=== PATIENT | male | born 1935 | race Caucasian/White ===

== ENCOUNTER 2018-11-05 07:56 | Inpatient (IN) ==
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
[2018-11-05] MEDS ORDERED: Bupivacaine 0.5% Inj 50 ML MDV Vial ONE (08:41)
[2018-11-05] MEDS ORDERED: Sodium Chlor 0.9% Inj 500 ML IV.CONT ONE (08:45)
[2018-11-05] MEDS ORDERED: Metoprolol Tartrate 25 MG Tablet PO ONE (08:45)
[2018-11-05] MEDS ORDERED: Chlorhexidine Gluconate 2% 1 Pack (2 Cloths) TOPICAL ONE (08:45)
[2018-11-05] MEDS ORDERED: ceFAZolin 2 GM Premix Inj 2 GM/50 ML PIGGYBACK IV.SIG SCH (09:00)
[2018-11-05] MEDS ORDERED: Famotidine PF Inj 20 MG/2 ML Vial ONE (09:15)
[2018-11-05] MEDS ORDERED: ceFAZolin Inj 500 MG Vial ONE (09:15)
[2018-11-05] MEDS ORDERED: SODIUM CHLOR 0.9% IV.SIG SCH ×2 (10:00→13:00)
[2018-11-05] MEDS ORDERED: TRANEXAMIC ACID IV.SIG SCH ×2 (10:00→13:00)
[2018-11-05] MEDS ORDERED: Zolpidem Tartrate 5 MG Tablet PO PRN ×2 (12:59→13:00)
[2018-11-05] MEDS ORDERED: Bisacodyl 10 MG Supp RECTAL PRN (13:00)
[2018-11-05] MEDS ORDERED: Morphine Inj 30 MG/30 ML PCA.VIAL PCA PRN (13:00)
[2018-11-05] MEDS ORDERED: Morphine Inj 4 MG/ML Vial IV.PUSH PRN (13:00)
[2018-11-05] MEDS ORDERED: Acetaminophen 325 MG Tablet PO PRN (13:00)
[2018-11-05] MEDS ORDERED: Aluminum/Magnesium/Simethacone Susp 30 ML UDC PO PRN (13:00)
[2018-11-05] MEDS ORDERED: Naloxone Inj 0.4 MG/ML Vial IV.PUSH PRN (13:00)
[2018-11-05] MEDS ORDERED: Post-op Orders (for Pharmacy) OTHER STA (13:00)
[2018-11-05] MEDS ORDERED: Tranexamic Acid Inj 1,000 MG in Sodium Chlor 0.9% Inj 100 ML IV.SIG ONE (13:00)
--- NOTE | 2018-11-05 13:04 | P.DCO ---
- Diagnosis (1) Full thickness rotator cuff tear Status: Acute - Occupational Therapy Order: Evaluate and treat, Improve ADL, Gross motor coordination, Fine motor coordination - Home Health Nursing Order: Wound care and dressing changes, Nursing assessment with vital signs - Home Health Aide Order: To assist in: Bathing and personal care, electrical test technician and meal prep - Language Instructor Order: To evaluate: Living conditions/environment, Support services Order: To provide: Long range planning, Community services - Case Management Consult Case Management Consult-Home Health: Yes - Certification I have seen patient Serafin Davis on 11/05/18. My clinical findings support the need for the requested home health care services because: Limited ability to care for self, High risk of falls I certify that my clinical findings support that this patient is homebound because: Post-op weakness, Unsteady gait/balance, Unsafe to leave home unassisted (1) Full thickness rotator cuff tear Qualifiers: Laterality: left Qualified Code(s): M75.122 - Complete rotator cuff tear or rupture of left shoulder, not specified as traumatic
[2018-11-05] MEDS ORDERED: fentaNYL Citrate Inj 100 MCG/2 ML Ampul ONE (13:08)
--- NOTE | 2018-11-05 13:21 | XR ---
EXAM DATE: 11/05/2018 1:17 PM EST AGE/SEX: 82 years / Male INDICATIONS: Post op left total shoulder. CLINICAL DATA: This is the patient's initial encounter. Patient reports that signs and symptoms have been present for 1 day and indicates a pain score of 0/10. MEDICAL/SURGICAL HISTORY: None. None. COMPARISON: No prior exams available for comparison. FINDINGS: Left shoulder replacement is noted. Hardware appears to be adequate in position. CONCLUSION: Status post left shoulder replacement with hardware in adequate position.. Electronically signed by: Phil Samayoa MD Board Certified Radiologist 11/05/2018 1:20 PM EST
[2018-11-05] MEDS ORDERED: Morphine Inj 30 MG/30 ML PCA.VIAL PCA ONE (13:26)
--- NOTE | 2018-11-05 13:53 | MP ---
cc: Leland Dodd MD DATE OF OPERATION: 11/05/2018 DATE OF OPERATION: 11/05/2018 PREOPERATIVE DIAGNOSIS: Full-thickness rotator cuff tear of the left shoulder. 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 PROCEDURE PERFORMED: Left reverse shoulder arthroplasty. SURGEON: Leland Dodd MD ANESTHESIA: General endotracheal. INDICATIONS: This is an 82-year-old white male with a 6-month history of pain in the left shoulder. 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 His symptoms were aggravated thereafter when he was attempting to catch a falling cookbook, experiencing a rather sharp pain for which he was taking Vicodin that he had available at home for history of longstanding low back pain. He was later evaluated by his primary care physician, at which time he did receive at least 2 cortisone injections about the shoulder area and prescribed diclofenac that he found to be of limited benefit. X-ray studies did identify degenerative changes of the left shoulder region. He remains symptomatic with pain about the shoulder area, having difficulty with any overhead posturing of his left hand above the head level. He presented to the undersigned physician in 07/2018 and at that time, described ongoing pain was interfering with his daily routine. He was advised to undergo MRI scan evaluation, the results of which identified a complete tear involving the supraspinatus and infraspinatus tendon with a large fluid-filled defect and hypertrophy, enlargement of the acromioclavicular joint, and a probable labral tear. The tear was noted to have retracted to the level of the glenohumeral joint. There was dislocation of the long head of the biceps tendon. The patient returned to the office in followup disposition, at which time the findings of the scan were reviewed and treatment options discussed. The pros and cons of continued conservative management versus operative intervention that would involve an attempted repair of his rotator cuff lesion as opposed to reverse shoulder arthroplasty, were outlined with the pluses and minuses of each of these procedures being noted. It was suggested to the patient that the more favorable long-term benefit would be associated with a reverse shoulder arthroplasty for which the patient considered his options in this regard and subsequently expressed his desire to proceed accordingly. He was thus admitted to the hospital at this time in order that the above be accomplished. DETAILS OF PROCEDURE: Following induction of satisfactory general anesthesia by endotracheal intubation as completed per the department of anesthesia, the patient was positioned upon the operating table in a modified beach chair configuration. The left shoulder and upper extremity was isolated with a U-drape, thereafter being prepped with Betadine solution and draped into a sterile field in the routine manner. Prior to initiation of the actual procedure, the standard timeout protocol was completed. All parameters were appropriately addressed and confirmed by operating room personnel. A standard anterior approach to the shoulder was initiated through a sharp skin incision being extended from the inferior margin of the clavicle, adjacent to the coracoid process and distally to the axillary crease overlying the deltopectoral interval. The incision was developed through underlying subcutaneous tissue with hemostasis maintained by electrocautery. Distally, the deltopectoral interval was developed and the cephalic vein identified. The interval was developed in a distal to proximal orientation with the vein being retracted laterally with a cuff of deltoid musculature. Retractors were placed facilitating exposure of the deeper structures. The circumflex vessels were clamped and coagulated. The biceps tendon was exposed and the distal segment of it tenodesed to the insertion of the pectoralis, which had been released in a limited fashion. A digital release of subdeltoid adhesions had been accomplished and with the shoulder maintained in a slightly externally rotated portion, the attenuated segment of the subscapularis tendon was divided along the anatomical neck of the humerus and essentially no residual rotator cuff tissue was identified superiorly. The medial portion of the tendon was tagged with #1 Ti-Cron suture and the humeral head was thereafter, delivered into the wound. Examination did reveal degenerative changes throughout the entire articular surface of the humeral head region. An entry point was facilitated superiorly adjacent to the bicipital groove, allowing entry into the humeral canal. Sequential rasping was accomplished from 7-14 mm and thereafter, the external guide was positioned in approximately 30 degrees of retroversion, facilitating amputation of the humeral head. Broaching followed from 7-13 mm with the 13 mm stem determined to be a favorable fit. With the trial stem in place, the covering cap was placed and attention was redirected to the glenoid. Retractors were placed appropriately facilitating exposure. The stump of the biceps tendon was resected, as was the labrum and the superior and inferior glenohumeral ligaments the glenoid was thereafter exposed in a 360-degree orientation. Hash flores were placed from the 12 to 6 o'clock position in the 3-9 o'clock position, facilitating orientation of the central portion of the glenoid. Thereafter, a guidepin was placed in approximately 10 degrees of inferior tilt and with the guidepin maintained, stepdown reamer was passed over it facilitating creation of a central peg hole. Thereafter, a 25 mm glenosphere baseplate was firmly seated, a 35 mm central anchoring screw was placed and peripheral locking screws followed utilizing 25 mm screws superiorly and inferiorly and 15 mm screws anterior and posterior. With the baseplate firmly secured, a 36 mm glenosphere with maximum inferior offset was affixed to the baseplate in a secure manner. Attention returned to the proximal humerus. With the 13 [address] trial stem in place, a trial reduction followed utilizing a 36 x 44 mm bearing implant. The shoulder was reduced and carried through a passive range of motion and stability being demonstrated throughout the arc of mobility. An open dislocation was completed and the trial humeral components were removed. The canal thoroughly irrigated and dried and thereafter, a 13 mm mini-humeral stem was seated to which a 44 mm humeral tray with a 36 x 44 mm humeral bearing insert attached was affixed to the mini-stem and an open reduction completed with repeat range of motion again, noted stability as previously described. Final irrigation was accomplished. Hemostasis maintained. Previously inserted Ti-Cron sutures were utilized in repairing the segment of the subscapularis tendon. The deltopectoral interval was reapproximated with a running 0 Vicryl suture and the remaining portion of the wound was closed in layers with skin margins being reapproximated with a running subcuticular 3-0 Vicryl suture. Steri-Strips were applied over which Xeroform gauze and a bulky dry sterile dressing placed. The extremity being supported in an arm sling. Anesthesia was discontinued. The patient thus transferred to a hospital bed and returned to the recovery room in satisfactory condition, having tolerated his operative procedure well. Estimated blood loss was approximately 100 mL as determined per anesthesia. All implants were of the [employer] missile technician. Leland Dodd MD [facility]/ , 12:47 PM , 01:03 PM
[2018-11-05] MEDS: ceFAZolin 1 GM Premix Inj 1 GM/50 ML PIGGYBACK IV.SIG SCH ×2 (15:58→21:00)
--- NOTE | 2018-11-05 17:23 | P.CONIM ---
History of Present Illness Service: Hospitalist Consult date: 11/05/18 Requesting Physician: Leland Dodd Reason for Consult: Medical management Primary Care Provider: Vick Castnao JR, DO Chief Complaint: Left shoulder pain History of Present Illness: Patient is an 82-year-old male who is admitted with left shoulder pain due to complete tear of rotator cuff. Past medical history includes gout, depression, hyperlipidemia and GERD. Plan is for left reverse shoulder arthroplasty by Dr. Dodd on 11/06/18. Patient is seen sitting up in bed post procedure. He tells me that he feels very good and has no pain. Fingers of left hand with no numbness or pain. He denies any chest pain or shortness of breath. No nausea vomiting or diarrhea. He is looking forward to having dinner. 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 He does endorse nightly alcohol use and tells me that he would rather have a couple of beers then pain pump. Review of Systems Review of Systems: all other systems reviewed are negative PMFSH History History Provided By: Patient and Medical Record Medical History Medical History Alcohol abuse, continuous (Acute) Elevated triglycerides with high cholesterol (Acute) History of esophageal dilatation (Acute) Chronic back pain (Acute) Depression (Acute) GERD (gastroesophageal reflux disease) (Acute) Gout (Acute) Hx of rheumatic fever (Acute) Insomnia (Acute) Shoulder pain, left (Acute) Wears dentures (Acute) Wears glasses (Acute) Surgical History Surgical History History of colonoscopy (Acute) History of esophagogastroduodenoscopy (EGD) (Acute) Hx of bilateral inguinal hernia repair (Acute) Hx of cataract removal with insertion of prosthetic lens (Acute) Hx of exploratory laparotomy (Acute) Hx of splenectomy (Acute) Social History Social History Substance History: No History of Abuse Second Hand Smoke Exposure: No Smoking Status: Never smoker How Often Do You Have a Drink Containing Alcohol: 4 or more times a week Recent Travel in [facility] within the Last 8 Weeks: No Recent Out of Country Travel within the Last 8 Weeks: No Medications and Allergies Allergies Allergy/AdvReac Type Severity Reaction Status Date / Time No Known Allergies Allergy Verified 11/05/18 08:34 Home Medications Medication Instructions Recorded Confirmed Type allopurinol 300 mg PO DAILY 10/24/18 11/05/18 History buspirone 15 mg PO BID 10/24/18 11/05/18 History diclofenac sodium 75 mg PO BID 10/24/18 11/05/18 History fenofibrate nanocrystallized 145 mg PO 3XW 10/24/18 11/05/18 History mpjocvabsnjg-[id number]-FA-vit K 1 tab PO DAILY 10/24/18 11/05/18 History [Adults Multivitamin] pantoprazole 40 mg PO DAILY 10/24/18 11/05/18 History zolpidem 1 tab PO HS PRN 10/24/18 11/05/18 History aspirin 325 mg PO DAILY 11/05/18 11/05/18 History Active Medications: Active Medications Acetaminophen (Tylenol) 650 mg PO Q6H PRN PRN Reason: FEVER > 102 F Hydrocodone Bitart/Acetaminophen ([place] 5/325) 1 tab PO Q4H PRN PRN Reason: PAIN LESS THAN 5 ON SCALE Hydrocodone Bitart/Acetaminophen ([place] 5/325) 2 tab PO Q6H PRN PRN Reason: PAIN SCALE 5 TO 10 Al Hydrox/Mg Hydrox/Simethicone (Mag-Al Plus Susp Liq) 30 ml PO Q6H PRN PRN Reason: INDIGESTION Al Hydroxide/Mg Hydroxide (Milk Of Magnesia Liq) 30 ml PO BID PRN PRN Reason: Mild Constipation Allopurinol (Zyloprim) 300 mg PO DAILY [facility] Aspirin (Aspirin) 325 mg PO BID [facility] Bisacodyl (Dulcolax Supp) 10 mg RECTAL DAILY PRN PRN Reason: SEVERE CONSITIPATION Buspirone HCl (Buspar) 15 mg PO BID [facility] Fenofibrate (Tricor) 145 mg PO Q3D [facility] Cefazolin Sodium/Dextrose (Ancef 2 Gm Premix Inj) 2 gm in 50 mls @ 100 mls/hr IV.SIG PIG FURNACE OPERATOR RICHAR Stop: 11/09/18 08:59 Last Infusion: 11/05/18 10:45 Dose: Infused Cefazolin Sodium/Dextrose (Ancef 1 Gm Premix Inj) 1 gm in 50 mls @ 100 mls/hr IV.SIG Q6H [facility] Stop: 11/06/18 04:29 Last Admin: 11/05/18 15:58 Dose: 100 mls/hr Lactated Ringer's (Lr 1000 Ml Inj) 1,000 mls @ 80 mls/hr IV.CONT .[id number] [facility] Last Admin: 11/05/18 13:30 Dose: 80 mls/hr Morphine Sulfate (Morphine Inj) 30 mg in 30 mls @ 0 mls/hr DIGITAL PRODUCTION MANAGER UNSCH PRN PRN Reason: prn pain Stop: 11/06/18 12:59 Last Admin: 11/05/18 16:06 Dose: 0 mls/hr Lactulose (Lactulose Liq) 30 ml PO DAILY PRN PRN Reason: SEVERE CONSITIPATION Miscellaneous Information ([facility] [place] Nursing Information) 0 each OTHER UNSCH PRN PRN Reason: SEE DOSE INSTRUCTIONS Miscellaneous Information ([facility] Nursing Information) 0 each OTHER UNSCH PRN PRN Reason: SEE LABEL COMMENTS Stop: 11/06/18 12:33 Morphine Sulfate (Morphine Inj) 2 mg IV.PUSH Q3H PRN PRN Reason: BREAKTHROUGH PAIN Multivitamins/Minerals (Theragran-M) 1 tab PO DAILY [facility] Naloxone HCl (Narcan Inj) 0.4 mg IV.PUSH PRN PRN PRN Reason: Resp rate < 10 Ondansetron HCl (Zofran Inj) 4 mg IV.PUSH Q6H PRN PRN Reason: NAUSEA OR VOMITING Pantoprazole Sodium (Protonix) 40 mg PO DAILY [facility] Povidone Iodine (Betadine 7.5% Scrub) 1 applicatio TOPICAL ONCE [facility] Stop: 11/09/18 08:59 Senna/Docusate Sodium (Kayla-Colace) 1 tab PO BID [facility] Sennosides (Senokot) 17.2 mg PO BID PRN PRN Reason: Moderate Constipation Sodium Chloride (Ns Flush) 2 ml IV.FLUSH BID [facility] Sodium Chloride (Ns Flush) 2 ml IV.FLUSH PRN PRN PRN Reason: FLUSH AFTER USING IV ACCESS Zolpidem Tartrate (Ambien) 5 mg PO HS PRN PRN Reason: Insomnia Physical Exam Vital signs: Last Vital Signs Temp 98.1 F 11/05/18 12:30 Pulse 82 11/05/18 16:00 Resp 16 11/05/18 16:00 BP 118/66 11/05/18 16:00 Pulse Ox 96 12/19/18 16:00 Intake & Output 11/03/18 11/04/18 11/05/18 11/06/18 06:59 06:59 06:59 06:59 Intake Total 1199.87 / 1199.87 Output Total 150 / 150 Balance 1049.87 / 1049.87 Weight 78.7 kg Narrative: GENERAL: Well-nourished, well-developed adult male in no obvious distress. SKIN: Warm and dry. HEAD: Atraumatic. Normocephalic. CARDIOVASCULAR: Regular rate and rhythm. RESPIRATORY: No accessory muscle use. Clear to auscultation. Breath sounds equal bilaterally. GASTROINTESTINAL: Abdomen soft, non-tender, distended. Positive bowel sounds. MUSCULOSKELETAL: Extremities without clubbing, cyanosis, or edema. No obvious deformities. Left shoulder with surgical dressing, no obvious drainage. Fingers warm and well-perfused. NEUROLOGICAL: Awake and alert. No obvious cranial nerve deficits. Motor grossly within normal limits. Normal speech. PSYCHIATRIC: Appropriate mood and affect; insight and judgment good. Results Imaging Impressions Shoulder X-Ray 11/05/18 00:00 CONCLUSION: Status post left shoulder replacement with hardware in adequate position.. ABG Impressions Shoulder X-Ray 11/05/18 00:00 CONCLUSION: Status post left shoulder replacement with hardware in adequate position.. Assessment and Plan (1) Full thickness rotator cuff tear: Code(s): M75.120 - Complete rotator cuff tear or rupture of unspecified shoulder, not specified as traumatic Status: Acute Plan 82-year-old male admitted for repair of left full-thickness rotator cuff tear. Failed conservative management and cortisone injections. Left shoulder pain/rotator cuff tear -Status post left reverse shoulder arthroplasty on 11/06/18 -Managed by Ortho EtOH dependence -[facility] protocol -We will give 2 beers with dinner -DIGITAL PRODUCTION MANAGER pump off. Caution with narcotics and benzos -avoid oversedation Chronic conditions: Restart home medications as indicated DVT prophylaxis: ASA as per Ortho Discharge planning: Likely home. HH and PT per ortho _ (1) Full thickness rotator cuff tear Qualifiers: Laterality: left Qualified Code(s): M75.122 - Complete rotator cuff tear or rupture of left shoulder, not specified as traumatic
[2018-11-05] MEDS: Senna/Docusate Sodium 8.6/50 MG Tablet PO SCH (20:36)
[2018-11-05] MEDS ORDERED: LORazepam 1 MG Tablet PO PRN (21:10)
[2018-11-06 00:29] VITALS: RESP 17
[2018-11-06] MEDS: ceFAZolin 1 GM Premix Inj 1 GM/50 ML PIGGYBACK IV.SIG SCH (04:51)
[2018-11-06 05:40] VITALS: O2SAT 96
[2018-11-06 07:46] VITALS: BP 151/75; PULSE 82; TEMP 98.4
[2018-11-06] MEDS: Senna/Docusate Sodium 8.6/50 MG Tablet PO SCH (08:16)
--- NOTE | 2018-11-06 08:32 | MD ---
cc: Leland Dodd MD, Anthony E DO DATE OF DISCHARGE: 11/06/2018 ADMITTING DIAGNOSIS: Full thickness rotator cuff tear of the left shoulder. 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 Comorbidities gout, depression, elevated triglyceride and acid reflux. HISTORY OF PRESENT ILLNESS: An 82-year-old white male with a 6-month history of progressive left shoulder pain, the onset being related to a lifting type stress when he was attempting to lift a heavy pot filled with water. He aggravated his symptoms thereafter while attempting to catch a falling cook book and became symptomatic with rather sharp pain, generalized about the shoulder area for which he was taking Vicodin that he had available at home for history of longstanding low back pain. He was later evaluated by his primary care physician, at which time he did receive at least 2 cortisone injections to the shoulder area and prescribed diclofenac that he found to be of limited benefit. He also underwent x-ray studies, the results of which did report some degenerative changes about the left shoulder region. He had remained symptomatic with pain, especially with any attempted overhead posturing of his hand above the head level. He presented to the undersigned physician in July of this year and at that time, described ongoing pain about the shoulder area. Recommendation was made to proceed with an MRI scan, the results of which identified a complete tear involving the supraspinatus and infraspinatus tendons with a large fluid-filled defect and hypertrophy enlargement of the acromioclavicular joint, probable labral tear and dislocated long head of the biceps tendon. The tear itself was noted to have retracted to the level of the glenoid. These findings were reviewed with the patient, the pros and cons of continued conservative management versus operative intervention that would involve an attempted repair of his rotator cuff versus reverse shoulder arthroplasty were outlined. The pluses and minuses of each of these were reviewed. Given the overall findings, it was felt that the more favorable long-term benefit would come from reverse shoulder arthroplasty for which the patient expressed his desire to proceed accordingly and thus scheduled for admission at this time in order that the above be accomplished. His physical examination at the time of admission revealed no localizing tenderness about the left shoulder region. There was limited mobility with the patient unable to actively elevate his hand above the head level in a full overhead orientation. Internal rotation was limited to the posterior waist level with discomfort associated cross arm positioning of the left hand, right shoulder with effort. No sensation of crepitation instability about the glenohumeral joint. Drop arm test positive, weakness with external rotation. Foreign Service Teacher strength intact. Sensory intact. HOSPITAL COURSE: Prior to admission to the hospital, the patient had undergone medical evaluation and clearance for surgery as completed by his primary care physician, Dr. Castano. He was taken to the operating room on 05 November 2018, and on that date underwent a left reverse shoulder arthroplasty completed in an uncomplicated manner. The patient was noted to have tolerated his operative procedure well. His postoperative course stable thereafter. Postoperative x-rays revealed satisfactory positioning of reverse shoulder components. Followup examination of his surgical wound noted to be intact, healing favorably with no evidence of infection. The patient had indicated his desire to be discharged home and continue his rehabilitation on an outpatient basis. Plans were finalized in this regard and pending medical clearance, he was scheduled for discharge on the first postoperative day, at which time he was noted to be in a stable status and eager to be discharged at that time, he was scheduled to be seen in office followup in approximately 4 weeks. DISCHARGE MEDICATIONS: Included hydrocodone 5/325, #30. Aspirin 325 mg 1 tab twice daily for 3 weeks, #40. MD JONI Navarro/marvin , 06:38 AM , 06:47 AM
[2018-11-06] MEDS ORDERED: Aspirin 325 MG Tablet PO SCH ×2 (09:00→11:00)
[2018-11-06] MEDS ORDERED: Allopurinol 300 MG Tablet PO SCH (09:00)
[2018-11-06] MEDS ORDERED: Multivitamin/Minerals Therapeutic Tablet PO SCH (09:00)
--- NOTE | 2018-11-06 09:07 | P.PNIM ---
Subjective Interval history: Patient is seen sitting up in bed. Doing well and wishes to go home if at all possible no new concerns or complaints. Nursing reports no adverse events. Physical Exam Vital signs: Last Vital Signs Temp 98.4 F 11/06/18 07:46 Pulse 82 11/06/18 07:46 Resp 17 11/06/18 07:46 BP 151/75 H 11/06/18 07:46 Pulse Ox 96 11/06/18 07:46 Intake & Output 11/04/18 11/05/18 11/06/18 11/07/18 06:59 06:59 06:59 06:59 Intake Total 2749.87 / 2749.87 Output Total 1385 / 1385 Balance 1364.87 / 1364.87 Weight 78.6 kg Narrative: GENERAL: Well-nourished, well-developed adult male in no obvious distress. SKIN: Warm and dry. HEAD: Atraumatic. Normocephalic. CARDIOVASCULAR: Regular rate and rhythm. RESPIRATORY: No accessory muscle use. Clear to auscultation. Breath sounds equal bilaterally. GASTROINTESTINAL: Abdomen soft, non-tender, distended. Positive bowel sounds. MUSCULOSKELETAL: Extremities without clubbing, cyanosis, or edema. No obvious deformities. Left shoulder with surgical dressing, no obvious drainage. Fingers warm and well-perfused. NEUROLOGICAL: Awake and alert. No obvious cranial nerve deficits. Motor grossly within normal limits. Normal speech. PSYCHIATRIC: Appropriate mood and affect; insight and judgment good. Results Imaging Imaging: Impressions Shoulder X-Ray 11/05/18 00:00 CONCLUSION: Status post left shoulder replacement with hardware in adequate position.. Assessment and Plan (1) Full thickness rotator cuff tear: Code(s): M75.120 - Complete rotator cuff tear or rupture of unspecified shoulder, not specified as traumatic Status: Acute Plan 82-year-old male admitted for repair of left full-thickness rotator cuff tear. Failed conservative management and cortisone injections. Left shoulder pain/rotator cuff tear -resolved -Status post left reverse shoulder arthroplasty on 11/06/18 -Managed by Ortho EtOH dependence -chronic, stable -[facility] protocol -We will give 2 beers with dinner -GROOVING MACHINE OPERATOR pump off. Caution with narcotics and benzos -avoid oversedation Progress Note: Quality VTE Deep Vein Thrombosis/Pulmonary Embolism Present on Admission: No _ (1) Full thickness rotator cuff tear Qualifiers: Laterality: left Qualified Code(s): M75.122 - Complete rotator cuff tear or rupture of left shoulder, not specified as traumatic
[2018-11-07] MEDS ORDERED: Fenofibrate 145 MG Tablet PO SCH (09:00)
== END 2018-11-06 10:01 | disposition home health service (06) ==
LOC: HSDI 07:56 → N06 16:40
PROVIDERS: ADMIT Orthopaedic Surgery; ATTEND Orthopaedic Surgery